=== PATIENT | female | born 2000 | race Caucasian/White ===

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

== ENCOUNTER 2021-03-28 14:19 | Emergency (ER) | payer MEDICAID ==
--- NOTE | 2021-03-28 15:08 | NUR ---
[facility] CALLED: PT CALLED NO ANSWER
--- NOTE | 2021-03-28 15:08 | NUR ---
CALLED FOR PATIENT. PATIENT NOT IN LOBBY X 2ND ATTEMPT.
--- NOTE | 2021-03-28 15:32 | NUR ---
CALLED FOR PATIENT. PT NOT IN LOBBY FOR 3RD ATTEMPT.
== END 2021-03-28 15:34 | disposition left against medical advice (07) ==
LOC: ED 14:35
DX: R20.8 Other disturbances of skin sensation (principal); Z53.21 Procedure and treatment not carried out due to patient leaving prior to being seen by health care provider

== ENCOUNTER 2021-04-15 10:48 | Emergency (ER) | payer MEDICAID ==
[~2021-04-15] VITALS: Ht 170.2 cm; Wt 69.6 kg
[2021-04-15 10:58] VITALS: BP 116/72
--- NOTE | 2021-04-15 11:12 | NUR ---
PT ATE [employer] YESTERDAY AND VOMITTED X3. PT STATES SHE FEELS BETTER NOW. WORK WANTS CLEARANCE.
== END 2021-04-15 11:40 | disposition home or self-care (01) ==
LOC: ED 11:30
DX: R11.2 Nausea with vomiting, unspecified (principal); R10.9 Unspecified abdominal pain; F17.210 Nicotine dependence, cigarettes, uncomplicated
CPT/HCPCS: 99281; 99406

== ENCOUNTER 2021-04-21 18:54 | Emergency (ER) | payer MEDICAID ==
[~2021-04-21] VITALS: Ht 170.2 cm; Wt 70.6 kg
[2021-04-21 19:05] VITALS: BP 119/74
[2021-04-21] MEDS ORDERED: DEXAMETHASONE 4 MG TABLET PO ONE (19:30)
[2021-04-21] MEDS ORDERED: DEXAMETHASONE 4 MG TABLET ONE (19:34)
[2021-04-21] MEDS ORDERED: AMOXICILLIN 500 MG CAPSULE ONE (20:29)
[2021-04-21] MEDS ORDERED: AMOXICILLIN 500 MG CAPSULE PO ONE (20:30)
== END 2021-04-21 20:34 | disposition home or self-care (01) ==
LOC: ED 19:42
DX: J02.9 Acute pharyngitis, unspecified (principal); F17.200 Nicotine dependence, unspecified, uncomplicated; Z88.0 Allergy status to penicillin
CPT/HCPCS: 87081; 87880; 99283

== ENCOUNTER 2021-04-23 10:15 | Emergency (ER) | payer MEDICAID ==
[~2021-04-23] VITALS: Ht 170.2 cm; Wt 69.0 kg
[2021-04-23 10:40] VITALS: BP 118/75
[2021-04-23] MEDS ORDERED: KETOROLAC 30 MG/1 ML IM ONE (11:00)
[2021-04-23] MEDS ORDERED: KETOROLAC 30 MG/1 ML ONE (11:00)
== END 2021-04-23 11:15 | disposition home or self-care (01) ==
LOC: ED 10:54
DX: J02.8 Acute pharyngitis due to other specified organisms (principal)
CPT/HCPCS: 96372; 99283; J1885